=== PATIENT | male | born 1950 | race Caucasian/White ===

== ENCOUNTER → 2018-07-03 | Outpatient (CLI) | payer MEDICARE | END | disposition home or self-care (01) | LOC: U/S 08:50 | DX: I35.9 Nonrheumatic aortic valve disorder, unspecified (principal); K76.0 Fatty (change of) liver, not elsewhere classified; N28.1 Cyst of kidney, acquired | CPT/HCPCS: 76700 ==

== ENCOUNTER → 2018-08-16 | Outpatient (CLI) | payer MEDICARE ==
[~2018-08-16] MED LIST: IOHEXOL 100 ML; METOPROLOL 5 MG INJ; METOPROLOL 5 MG INJ IV; NITROGLYCERIN AEROSOL (4.9 GM); SOD CHLORIDE 0.9% 100 ML
== END | disposition home or self-care (01) ==
LOC: C/S 09:45
DX: R07.9 Chest pain, unspecified (principal); R06.02 Shortness of breath
CPT/HCPCS: 75571; 75571-59; 75574